=== PATIENT | male | born 1960 | race Caucasian/White ===

== ENCOUNTER 2022-04-12 08:08 | Inpatient (IN) ==
--- NOTE | 2022-03-29 16:00 | PAT Medication Instructions ---
Medication Instructions Date of Service March 29, 2022 Home Medications amlodipine 5 mg tablet 10 mg PO QAM aspirin 81 mg tablet,delayed release 81 mg PO QAM atorvastatin 20 mg tablet 20 mg PO QAM clopidogrel 75 mg tablet 75 mg PO QAM losartan 50 mg tablet 50 mg PO QAM ASK your prescriber and surgeon aspirin 81 mg tablet,delayed release 81 mg PO QAM clopidogrel 75 mg tablet 75 mg PO QAM DO NOT take the morning of surgery losartan 50 mg tablet 50 mg PO QAM Take morning of surgery With a small sip of water, OTHERWISE NOTHING TO EAT OR DRINK AFTER MIDNIGHT: amlodipine 5 mg tablet 10 mg PO QAM atorvastatin 20 mg tablet 20 mg PO QAM Other Notes If you have any questions please call us at [phone] or [phone] or [phone] or [phone]
--- NOTE | 2022-04-04 08:51 | Anesthesiology Consultation ---
Date of Service April 04, 2022 Assessment & Plan (1) Encounter for pre-operative examination: - awaiting copy of 03/16/[address] - awaiting cardiology pre-op evaluation 04/06/22. - New occasional dyspnea with exertion and non-associated chest discomfort. Pt denies any symptoms today in clinic, normal cardiopulmonary exam. He was advised to call his PCP to update on new symptoms and to call 911 if recurrence of either symptoms or new symptoms. He verbalized understanding and agreement, denied questions or concerns. Barbara with PCP office made aware. Workload note sent to cardiology provider for upcoming 04/06/22 appointment. Thalia with surgeon's office made aware. Chart Review Chart Review: Pending: Refer to Additional Notes / Consult section and Patient seen in Pre Admission Testing Teaching & Discussion Pre-Anesthesia Teaching/Discussion Notes: Instructed NPO after midnight before surgery, except medications with 15 cc of water. Medication instructions provided according to the PAT guidelines. History Surgery Operation Date: 04/12/22 10:20 Proposed Procedures p Right Common Femoral Endarterectomy - Omega Valle MD Height/Weight Height: 5 ft 7 in Weight: 98.6 kg Allergies Allergy/AdvReac Type Severity Reaction Status Date / Time No Known Allergies Allergy Verified 03/29/22 13:30 Medications Home Medications Medication Instructions Recorded Confirmed Last Taken amlodipine 5 mg tablet 10 mg PO QAM 01/02/22 03/29/22 03/22/22 07:30 aspirin 81 mg tablet,delayed 81 mg PO QAM 01/02/22 03/29/22 03/22/22 07:30 release atorvastatin 20 mg tablet 20 mg PO QAM 01/02/22 03/29/22 03/22/22 07:30 clopidogrel 75 mg tablet 75 mg PO QAM 01/02/22 03/29/22 03/22/22 07:30 Past Medical History Medical History (Updated 04/04/22 @ 08:46 by Genoveva Crain PA-C) History of arteriography Hypertension controlled, stable per pt Peripheral arterial disease Sleep apnea cpap-compliant Patient denies h/o stroke, seizures, heart attack, heart failure, DM, blood clots or blood transfusions. Exercise / Class Metabolic Activity II 4-5 Yardwork/Stairs/Walk up hill (occasional mild SOB with 1 FOS 1 week ago, denies chest discomfort with stairs but states infrequently has slight chest discomfort at rest-denies with activity; denies symptoms today) Past Surgical History Surgical History History of esophagogastroduodenoscopy (EGD) History of tonsillectomy and adenoidectomy Past Anesthesia History No Hx of Anesthesia Complications and No Family Hx of Anesthesia Complications History of PONV No Hx of PONV and No Hx of Motion Sickness Social History Smoking Status: Current every day smoker (advised) tobacco type: cigarettes Smoking cigarettes per day: 10 Do You Dip or Chew Tobacco: No Hx Alcohol Use: Yes alcohol intake frequency: holidays/special occasions only Hx Substance Use: No substance use type: does not use Review of Systems Patient denies reflux, fever, chills, cough, wheezing, or palpitations. Physical Exam Vital Signs Vitals BP 147/89 P 69 TEMP 98 SP02 96% on RA RESP 17 Physical Pt resting comfortably in clinic, alert and oriented, responding appropriately throughout, non-diaphoretic Full cervical extension range of motion without pain TMD 3.5 finger breadths Mallampati Score 2 Dentition: intact, several chipped teeth, several caps/crowns; denies loose teeth, implants or bridges Lungs: normal respiratory effort. Clear throughout to auscultation, no adventitious breath sounds Cardiac: regular rate and rhythm, no murmurs noted Carotid arteries: negative bruit bilat Lab Results Anesthesia Preop Results Results Anesthesia Widget: WBC 11.39 K/ul (4.8-10.8) H 04/04/22 Hgb 16.9 g/dl (14.0-18.0) 04/04/22 Hct 45.9 % (40.1-51.0) 04/04/22 Plt 219 K/uL (130-400) 04/04/22 Na 143 mmol/L (136-145) 04/04/22 K 4.1 mmol/L (3.5-5.1) 04/04/22 Cl 108 mmol/L (98-107) H 04/04/22 CO2 29 mmol/L (21-32) 04/04/22 BUN 8 mg/dl (6-23) 04/04/22 Creat 0.77 mg/dl (0.6-1.4) 04/04/22 Glucose Level 97 mg/dl (70-99(Fasting)) 04/04/22 PT 10.9 Seconds (9.0-12.0) 04/04/22 PTT 29.6 Seconds (21.0-31.0) 04/04/22 INR 1.0 (0.9-1.1) 04/04/22 Blood Type O Positive 04/04/22 Antibody Screen NEGATIVE 04/04/22 Testing Laboratory Results Surgeon's office made aware of slightly elevated WBC with left shift. Electrocardiogram Date: 04/04/22 Sinus bradycardia with 1st degree AV block, rate 59 bpm Chest X-Ray Date: 01/02/22 *1view* No acute chest disease
--- NOTE | 2022-04-11 15:23 | History & Physical Report ---
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 He is admitted for arteriography and intervention of his iliac arteries. I have discussed the risks options and benefits of the procedure with the patient. The patient understands the risks options and benefits and agrees to the procedure. History of Present Illness Chief Complaint: Lower extremity claudication Primary Care Provider: Ramirez Toro PA-C Mr De Dios is a very pleasant 61-year-old gentleman with history of hypertension, hyperlipidemia and peripheral arterial disease. He had a prior right common iliac artery stenting over 10 years ago in [place]. He then underwent left common iliac artery stenting and balloon angioplasty of the right LLOYD stent in [address] Paul in [facility]. This was performed for lower extremity claudication. Per reports, he had two10 x 39 balloon expandable stents placed in the left common iliac artery. This was postdilated to 12 mm. There was no record of the size of the right iliac stent. He was maintained on aspirin and Plavix. He states he never had follow-up or imaging for both stents. He moved to [place] years ago and he currently works at this [employer]. He states that he was tased during training in October at his back and since then noticed right hip claudication that typically happens after walking for 20 to 30 feet and relieved by rest. He then also started to notice pain in the left lower extremity involving the calf, thigh and hip. The left side pain happens all the time and wakes him up from sleep. He is very frustrated about this disabling pain but he continues to work despite that. He denies numbness or weakness. He denies wounds or ulcers. He continues to smoke half a pack a day. Allergies Allergy/AdvReac Type Severity Reaction Status Date / Time No Known Allergies Allergy Verified 01/02/22 01:34 Home Medications Medication Instructions Recorded Confirmed Type amlodipine 5 mg tablet 5 mg PO QAM 01/02/22 01/02/22 History aspirin 81 mg tablet,delayed 81 mg PO QAM 01/02/22 01/02/22 Hi story release atorvastatin 20 mg tablet 20 mg PO QAM 01/02/22 01/02/22 Histo ry clopidogrel 75 mg tablet 75 mg PO QAM 01/02/22 01/02/22 Histor y Past Med/Surg History Medical History Peripheral arterial disease Social History Smoking Status: Current every day smoker Tobacco Type: Cigarettes Preferred Language: Chinese Feels Safe at Home: Yes Review of Systems All systems reviewed & are unremarkable except as noted in HPI & below Physical Exam Physical Exam:M PHYSICAL EXAM: VITALS: 140/80, heart rate 76, satting 96% on room air. GENERAL: Sitting comfortably no acute distress CARDS: Regular PULM: nonlabored breathing on room air ABDOMEN: Soft, nondistended EXTREMITIES: Warm, well-perfused. No skin tears or wounds. Palpable DP and biphasic PT signals bilaterally NEURO: Grossly intact Signed By: <Electronically signed by Omega Valle MD> 03/23/22828 Created:03/23/22825 The status of this report isSigned. Draft = Not yet reviewed or approved by Medical Physician. Signed = Reviewed and approved by Medical Physician. Allergies Allergy/AdvReac Type Severity Reaction Status Date / Time No Known Allergies Allergy Verified 04/06/22 08:27 Home Medications Medication Instructions Recorded Confirmed Type amlodipine 5 mg tablet 10 mg PO QAM 01/02/22 04/06/22 History aspirin 81 mg tablet,delayed 81 mg PO QAM 01/02/22 04/06/22 History release atorvastatin 20 mg tablet 20 mg PO QAM 01/02/22 04/06/22 History clopidogrel 75 mg tablet 75 mg PO QAM 01/02/22 04/06/22 History Past Med/Surg History Medical History (Updated 04/04/22 @ 08:46 by Genoveva Crain PA-C) History of arteriography Hypertension controlled, stable per pt Peripheral arterial disease Sleep apnea cpap-compliant Surgical History History of esophagogastroduodenoscopy (EGD) History of tonsillectomy and adenoidectomy Social History Smoking Status: Current every day smoker (advised) Tobacco Type: Cigarettes Cigarettes Per Day: 10; Second Hand Exposure: No; Hx Alcohol Use: Yes Hx Substance Use: No Preferred Language: Chinese Communication Ability: Effective Brick Off Bearer Required: No Beliefs That Will Affect Care: None Current Living Situation: Family Feels Safe at Home: Yes Assistive Devices: CPAP and Glasses
[~2022-04-12 08:08] MED LIST: CEFAZOLIN 2,000 MG/15 ML SYR IV SCH; SODIUM CHLORIDE 0.9% 1000ML 1,000 ML IV SCH
--- NOTE | 2022-04-12 09:58 | History & Physical Bridge Note ---
Date of Service April 12, 2022 History & Physical Bridge Note I have examined the patient, reviewed the History & Physical and in the interval since the performance of the History & Physical I have noted the following changes of clinical significance: no changes noted
[2022-04-12] MEDS ORDERED: GELATIN SPONGE SZ 100 ONE (10:03)
[2022-04-12] MEDS ORDERED: BUPIVACAINE 0.5 % 5 MG/1 ML MPF 30ML VIAL ONE (10:03)
[2022-04-12] MEDS ORDERED: HEPARIN (PORCINE) 1000 UNIT/ML 10 ML (CATH LAB USE ONLY) ONE (10:03)
[2022-04-12] MEDS ORDERED: EPINEPHrine INJ 1 MG/ML AMP ONE ×2 (10:03→10:05)
[2022-04-12] MEDS ORDERED: ceFAZolin 330 MG/ML 1 GM VIAL ONE (10:03)
[2022-04-12] MEDS ORDERED: LIDOCAINE 1% LOCAL 20 ML VIAL ONE (10:03)
[2022-04-12] MEDS ORDERED: PAPAVERINE HCL INJ 30 MG/ML 2 ML VIAL ONE (10:03)
[2022-04-12] MEDS ORDERED: THROMBIN FOR SOLN 20000 UNIT KIT ONE (10:04)
[2022-04-12] MEDS ORDERED: PROPOFOL IV EMULSION 10 MG/ML 20 ML VIAL IV ONE (10:10)
[2022-04-12] MEDS ORDERED: ATROPINE SULFATE 0.1 MG/ML 10ML SYR IV PRN (10:10)
[2022-04-12] MEDS ORDERED: HYDROmorphone INJ 2 MG/ML SYR/VIAL IV PRN (10:10)
[2022-04-12] MEDS ORDERED: ONDANSETRON INJ 2 MG/ML 2 ML VIAL IV PRN (10:10)
[2022-04-12] MEDS ORDERED: fentaNYL citrate 100 MCG/2 ML VIAL IV PRN (10:10)
[2022-04-12] MEDS ORDERED: DEXAMETHASONE SOD INJ 4 MG/ML VIAL ONE (10:10)
[2022-04-12] MEDS ORDERED: ONDANSETRON INJ 2 MG/ML 2 ML VIAL ONE (10:10)
[2022-04-12] MEDS ORDERED: ePHEDrine sulfate 50 MG/ML AMP IV PRN (10:10)
[2022-04-12] MEDS ORDERED: PROMETHAZINE HCL 12.5 MG in SODIUM CHLORIDE 0.9% 50 ML IV PRN (10:10)
[2022-04-12] MEDS ORDERED: fentaNYL citrate 100 MCG/2 ML VIAL ONE ×4 (10:11→13:23)
[2022-04-12] MEDS ORDERED: MIDAZOLAM HCL 1 MG/ML 2ML VIAL ONE (10:11)
[2022-04-12 10:29] LABS: Calcium 8.9 mg/dl (8.5-10.1); Creatinine Clr Calc Pharmacy 142.3 ml/min; Est GFR (African American) 125.8 ml/min; Est GFR (Non-African American) 108.5 ml/min; Potassium 3.7 mmol/L (3.5-5.1)
[2022-04-12] MEDS ORDERED: HEPARIN SOD (PORCINE) 1000 UNIT/ML ONE (12:05)
--- NOTE | 2022-04-12 13:26 | Post Operative Brief Note ---
Immediate Post Op Note v1 Date of Surgery April 12, 2022 Pre & Post Diagnosis Operation Date: 04/12/22 10:20 Pre-Op Diagnosis: Right Common Femoral Artery Occlusion Post-Op Diagnosis: Right Common Femoral Artery Occlusion I identified the patient and participated in the time-out.: Yes Procedure Operation Date: 04/12/22 10:20 Actual Procedures p Right Common Femoral Endarterectomy with bovine patch and bovine interposition graft of proximal superficial femoral artery - Omega Valle MD Surgeon Omega Valle MD Fisher Sponge Hooking Genoveva,PAC Estimated Blood Loss 200 Findings Consistent with Post-Op Diagnosis Anesthesia Type General Complications none Disposition Accompanied Patient To Recovery: No Disposition: Recovery Room
--- NOTE | 2022-04-12 13:59 | Anesthesiology Progress Note ---
Date of Service April 12, 2022 Anesthesia Post Procedure Vital Signs Vital Signs: Temp Pulse Pulse Resp BP Pulse Ox O2 Del Method 04/12/22 13:55 70 15 144/81 H 95 Oxymask 04/12/22 13:45 73 15 159/76 H 95 Oxymask 04/12/22 13:35 73 15 145/74 H 95 Oxymask 04/12/22 13:26 37.3 C 74 12 147/95 H 95 Oxymask 04/12/22 08:41 36.9 C 67 20 120/83 93 Room Air O2 Flow Rate 04/12/22 13:55 5 04/12/22 13:45 5 04/12/22 13:35 10 04/12/22 13:26 10 04/12/22 08:41 Transfer of Care Handoff Completed per policy Notes Mental Status: alert / awake / arousable and participated in evaluation Patient Amnestic to Procedure: Yes Nausea / Vomiting: adequately controlled Pain: adequately controlled Airway Patency, RR, SpO2: stable & adequate BP & HR: stable & adequate Hydration State: stable & adequate Anesthetic Complications: no major complications apparent
[2022-04-12] MEDS: oxyCODONE/ACETAMINOPHEN 5mg/325mg TAB PO PRN (15:11)
[2022-04-12 15:13] LABS: Basophils # (auto) 0.06 K/uL (0-0.2); Basophils % (auto) 0.5 %; Eosinophils # (auto) 0.18 K/uL (0-0.50); Eosinophils % (auto) 1.6 %; Hematocrit (blood only) 39.7 % (40.1-51.0); Hemoglobin 14.7 g/dl (14.0-18.0); Immature Granulocytes # (auto) 0.07 K/uL (0.00-0.02); Immature Granulocytes % (auto) 0.6 %; Mean Corpuscular Hemoglobin 34.5 pg (25.0-34.0); Mean Corpuscular Volume 93.2 fL (80.0-100.0); Mean Platelet Volume 8.7 fL (9.4-12.4); Monocytes # (auto) 0.65 K/uL (0.24-0.82); Monocytes % (auto) 5.9 %; Neutrophils # (auto) 7.69 K/uL (1.4-6.5); Neutrophils % (auto) 70.4 %; Platelet Count 182 K/uL (130-400); RDW Coefficient of Variation 12.3 % (11.5-14.5); RDW Standard Deviation 42.3 fL (36.4-46.3); Red Blood Count 4.26 M/uL (4.63-6.08); White Blood Count 10.95 K/ul (4.8-10.8)
[2022-04-12] MEDS: D5W AND 1/2NSS 1,000 ML IV SCH ×2 (15:20→23:24)
[2022-04-12] MEDS: ceFAZolin 2000MG 2,000 MG/15 ML SYR IV SCH (17:25)
[2022-04-12] MEDS: MoRPHine SULFATE 4 MG/ML 1 ML CARP\\VIAL IV PRN (22:47)
[2022-04-13] MEDS: ceFAZolin 2000MG 2,000 MG/15 ML SYR IV SCH (02:01)
[2022-04-13] MEDS: MoRPHine SULFATE 4 MG/ML 1 ML CARP\\VIAL IV PRN ×2 (02:04→06:42)
[2022-04-13 06:27] LABS: Basophils # (auto) 0.07 K/uL (0-0.2); Basophils % (auto) 0.6 %; Eosinophils # (auto) 0.32 K/uL (0-0.50); Eosinophils % (auto) 2.7 %; Hematocrit (blood only) 37.4 % (40.1-51.0); Hemoglobin 13.5 g/dl (14.0-18.0); Immature Granulocytes # (auto) 0.06 K/uL (0.00-0.02); Immature Granulocytes % (auto) 0.5 %; Lymphocytes # (auto) 3.37 K/uL (1.2-3.4); Lymphocytes % (auto) 28.2 %; Mean Corpuscular Hemoglobin 33.6 pg (25.0-34.0); Mean Corpuscular Hgb Conc 36.1 g/dL (32.0-36.0); Mean Platelet Volume 8.9 fL (9.4-12.4); Monocytes # (auto) 0.89 K/uL (0.24-0.82); Monocytes % (auto) 7.5 %; Neutrophils # (auto) 7.22 K/uL (1.4-6.5); Neutrophils % (auto) 60.5 %; Platelet Count 172 K/uL (130-400); RDW Coefficient of Variation 12.4 % (11.5-14.5); RDW Standard Deviation 42.2 fL (36.4-46.3); Red Blood Count 4.02 M/uL (4.63-6.08); White Blood Count 11.93 K/ul (4.8-10.8)
[2022-04-13 06:53] LABS: BUN Creatinine Ratio 11.9 (10-20); Calcium 8.1 mg/dl (8.5-10.1); Creatinine Clr Calc Pharmacy 101.8 ml/min; Est GFR (African American) 109.5 ml/min; Est GFR (Non-African American) 94.5 ml/min; Potassium 3.8 mmol/L (3.5-5.1)
[2022-04-13] MEDS: ASPIRIN 81 MG ECTAB PO SCH (08:14)
[2022-04-13] MEDS: amLODIPine BESYLATE 5 MG TAB PO SCH (08:14)
[2022-04-13] MEDS: ENOXAPARIN INJ 40 MG/0.4 ML SYR SQ SCH (08:14)
[2022-04-13] MEDS: ATORVASTATIN 20 MG TAB PO SCH (08:14)
[2022-04-13] MEDS: CLOPIDOGREL BISULFATE 75 MG TAB PO SCH (08:15)
--- NOTE | 2022-04-13 09:24 | Surgery Progress Note ---
Date of Service April 13, 2022 Assessment & Plan (1) Occlusion of common femoral artery: Plan: Pt now POD #1 after RLE common femoral endarterectomy with bovine interposition graft. Still having pain in R groin. Will increase activity today. Possible d/c tomorrow. Admission and Anticipated Discharge Date Admission Date: April 12, 2022 Subjective 61 yo m POD #1 after RLE common femoral endarterectomy with bovine interposition graft, seen in f/u today. Pt state he feels tired and his R groin is sore. Denies SHARIF, chest pain, SOB, abd pain, N/V, dizziness, R fooe pain, other complaints. Review of Systems Review of Systems: All systems reviewed & are unremarkable except as noted in HPI & below Physical Exam Constitutional: WD/WN, vitals as above not in distress Respiratory: normal respiratory effort Auscultation: lungs clear to auscultation bilaterally and + diminished lung sounds Cardiovascular: Rate/Rhythm: regular rate and regular rhythm Vessels: femoral pulses present, posterior tibial pulses present, dorsalis pedis pulses present and radial pulses present; + abnormal peripheral pulses Extremities: normal capillary refill; no edema Gastrointestinal (Abdomen): Inspection/Auscultation: abdomen normal to inspection and normal bowel sounds Percussion/Palpation: abdomen soft; abdomen nontender Musculoskeletal: no cyanosis or clubbing, extremities motor strength 5/5 Skin: no rashes, warm and dry + incision (R groin incisional wound vac in place, working well. ) Neurologic: moves all extremities and awake; no focal motor deficits and not confused Psychiatric: A+Ox3, euthymic affect Results & Data ([facility]) Vital Signs (Past 12 Hours) Vital Signs Temp Pulse Pulse Resp BP Pulse Ox O2 Del Method 04/13/22 07:41 36.7 C 63 16 123/80 93 Room Air 04/13/22 03:32 92 Nasal Cannula 04/13/22 03:15 37 C 69 18 113/69 88 L Room Air 04/12/22 22:45 36.5 C 57 L 18 113/72 93 Room Air O2 Flow Rate 04/13/22 07:41 04/13/22 03:32 2 04/13/22 03:15 04/12/22 22:45
[2022-04-14 07:44] LABS: Hematocrit (blood only) 36.3 % (40.1-51.0); Hemoglobin 13.4 g/dl (14.0-18.0)
[2022-04-14] MEDS: ATORVASTATIN 20 MG TAB PO SCH (08:33)
[2022-04-14] MEDS: ASPIRIN 81 MG ECTAB PO SCH (08:33)
[2022-04-14] MEDS: amLODIPine BESYLATE 5 MG TAB PO SCH (08:33)
[2022-04-14] MEDS: ENOXAPARIN INJ 40 MG/0.4 ML SYR SQ SCH (08:33)
[2022-04-14] MEDS: CLOPIDOGREL BISULFATE 75 MG TAB PO SCH (08:33)
--- NOTE | 2022-04-14 15:04 | Surgery Progress Note ---
Date of Service April 14, 2022 Assessment & Plan (1) Occlusion of common femoral artery: Plan: Pt now POD #2 after RLE common femoral endarterectomy with bovine interposition graft. Doing much better today. Ambulating without assistance. D/C today Admission and Anticipated Discharge Date Admission Date: April 12, 2022 Subjective 61 yo m POD #2 after RLE common femoral endarterectomy with bovine interposition graft, seen in f/u today. He has no complaints today. He has no pain in the right groin but he does complain of some tingling in his thigh. He has no pain in his right foot. He was ambulating in the perez and claims of both legs feel better. Physical Exam Constitutional: WD/WN, vitals as above Respiratory: normal respiratory effort; no respiratory distress Cardiovascular: Rate/Rhythm: regular rate and regular rhythm Vessels: femoral pulses present, posterior tibial pulses present and dorsalis pedis pulses present Extremities: normal capillary refill Skin: + incision (prevena in place) Results & Data ([facility]) Vital Signs (Past 12 Hours) Vital Signs Temp Pulse Resp BP Pulse Ox O2 Del Method 04/14/22 08:48 Room Air 04/14/22 07:40 37.2 C 73 16 130/83 93 Room Air
[2022-04-14] MEDS: oxyCODONE/ACETAMINOPHEN 5mg/325mg TAB PO PRN (16:34)
--- NOTE | 2022-04-18 14:00 | Discharge Summary ---
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 He is admitted for arteriography and intervention of his iliac arteries. I have discussed the risks options and benefits of the procedure with the patient. The patient understands the risks options and benefits and agrees to the procedure. History of Present Illness Chief Complaint: Lower extremity claudication Primary Care Provider: Ramirez Toro PA-C Mr De Dios is a very pleasant 61-year-old gentleman with history of hypertension, hyperlipidemia and peripheral arterial disease. He had a prior right common iliac artery stenting over 10 years ago in [place]. He then underwent left common iliac artery stenting and balloon angioplasty of the right LLOYD stent in [address] Paul in [facility]. This was performed for lower extremity claudication. Per reports, he had two10 x 39 balloon expandable stents placed in the left common iliac artery. This was postdilated to 12 mm. There was no record of the size of the right iliac stent. He was maintained on aspirin and Plavix. He states he never had follow-up or imaging for both stents. He moved to [place] years ago and he currently works at [employer]. He states that he was tased during training in October at his back and since then noticed right hip claudication that typically happens after walking for 20 to 30 feet and relieved by rest. He then also started to notice pain in the left lower extremity involving the calf, thigh and hip. The left side pain happens all the time and wakes him up from sleep. He is very frustrated about this disabling pain but he continues to work despite that. He denies numbness or weakness. He denies wounds or ulcers. He continues to smoke half a pack a day. Allergies Allergy/AdvReac Type Severity Reaction Status Date / Time No Known Allergies Allergy Verified 01/02/22 01:34 Home Medications Medication Instructions Recorded Confirmed Type amlodipine 5 mg tablet 5 mg PO QAM 01/02/22 01/02/22 History aspirin 81 mg tablet,delayed 81 mg PO QAM 01/02/22 01/02/22 Hi story release atorvastatin 20 mg tablet 20 mg PO QAM 01/02/22 01/02/22 Histo ry clopidogrel 75 mg tablet 75 mg PO QAM 01/02/22 01/02/22 Histor y Past Med/Surg History Medical History Peripheral arterial disease Social History Smoking Status: Current every day smoker Tobacco Type: Cigarettes Preferred Language: Georgian Feels Safe at Home: Yes Review of Systems All systems reviewed & are unremarkable except as noted in HPI & below Physical Exam Physical Exam: PHYSICAL EXAM: VITALS: 140/80, heart rate 76, satting 96% on room air. GENERAL: Sitting comfortably no acute distress CARDS: Regular PULM: nonlabored breathing on room air ABDOMEN: Soft, nondistended EXTREMITIES: Warm, well-perfused. No skin tears or wounds. Palpable DP and biphasic PT signals bilaterally NEURO: Grossly intact Signed By: <Electronically signed by Omega Valle MD> 03/23/22828 Created:03/23/22825 The status of this report isSigned. Draft = Not yet reviewed or approved by Medical Physician. Signed = Reviewed and approved by Medical Physician. Admission Exam Per Admitting Provider PHYSICAL EXAM: VITALS: 140/80, heart rate 76, satting 96% on room air. GENERAL: Sitting comfortably no acute distress CARDS: Regular PULM: nonlabored breathing on room air ABDOMEN: Soft, nondistended EXTREMITIES: Warm, well-perfused. No skin tears or wounds. Palpable DP and biphasic PT signals bilaterally NEURO: Grossly intact Principal Diagnosis 1. s/p R Common femoral Endarterectomy with bovine patch 2. Right common femoral artery occlusion Discharge Exam Constitutional WD/WN, vitals as above not in distress Respiratory normal respiratory effort Auscultation: lungs clear to auscultation bilaterally and + diminished lung sounds Cardiovascular Rate/Rhythm: regular rate and regular rhythm Vessels: femoral pulses present, posterior tibial pulses present, dorsalis pedis pulses present and radial pulses present; + abnormal peripheral pulses Extremities: normal capillary refill; no edema Gastrointestinal (Abdomen) Inspection/Auscultation: abdomen normal to inspection and normal bowel sounds Percussion/Palpation: abdomen soft; abdomen nontender Musculoskeletal no cyanosis or clubbing, extremities motor strength 5/5 Skin no rashes, warm and dry + incision (R groin incisional wound vac in place, working well. ) Neurologic moves all extremities and awake; no focal motor deficits and not confused Psychiatric A+Ox3, euthymic affect Discharge Data Allergies Allergy/AdvReac Type Severity Reaction Status Date / Time No Known Allergies Allergy Verified 04/12/22 08:38 Procedures Performed Operation Date: 04/12/22 10:20 Actual Procedures p Right Common Femoral Endarterectomy - Omega Valle MD Hospital Course (1) Occlusion of common femoral artery: Pt now POD #2 after RLE common femoral endarterectomy with bovine interposition graft. Doing much better today. Ambulating without assistance. D/C today Total Time Total Time Spent Total Time Spent (In Minutes): 0 Discharge Plan Discharge Items Patient Disposition: Home - Self-Care Reason For Visit: Right Common Femoral Artery Occlusion Discharge Diagnosis: Right common femoral artery stenoses, right common femoral artery endarterectomy with bovine graft Activity: Per Instructions section Non-emergency contact: Surgeon Call non-emergency contact if: your temperature is above 101.5, your wound has increased redness, your wound has increased drainage and your wound pain has increased Follow-up/Referrals: Ramirez Toro PA-C [Primary Care Provider] - Diet: Heart Healthy Addtl Attending Provider Instructions: ACTIVITY RECOMMENDATIONS: May shower starting tomorrow if the Prevena dressing can be covered and remain dry. May remove Prevena graft this coming Monday or sooner if it loses the suction SPECIAL CARE INSTRUCTIONS: Call your doctor if: * Temperature above 101 degrees * Pain not relieved by pain medicine ordered * There is increased drainage or redness from any incision * You have any unanswered questions or concerns. Pending Studies at Discharge: No Stand-Alone Forms: [facility] [employer], Smoking Cessation Medications and DC Order Prescriptions: New oxycodone-acetaminophen [Percocet] 5-325 mg tablet 1 tab PO Q6H PRN (Reason: pain) Qty: 20 0RF Continued atorvastatin 20 mg tablet 20 mg PO QAM clopidogrel 75 mg tablet 75 mg PO QAM amlodipine 5 mg tablet 10 mg PO QAM aspirin 81 mg Tablet,Delayed Release (Dr/Ec) 81 mg PO QAM Discharge Orders: Discharge Order (Routine); Ordered 04/14/22 Ordered By: Omega Valle Admission Data Admit Date/Time: 04/12/22 13:18 Attending Provider: Omega Valle Admit Provider: Omega Valle Primary Care Provider: Ramirez Toro Other Interventions: Discharge Summary Assessment (RN) Last Done: 04/14/22 15:56
--- NOTE | 2022-04-25 12:45 | Operative Report ---
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 Post-Op Diagnosis: Right Common Femoral Artery Occlusion I identified the patient and participated in the time-out.: Yes Procedure Operation Date: 04/12/22 10:20 Actual Procedures p Right Common Femoral Endarterectomy with bovine patch and bovine interposition graft of superficial femoral artery proximally- Omega Valle MD Surgeon Omega Valle MD [employer] Genoveva,PAC Estimated Blood Loss 200 Findings Consistent with Post-Op Diagnosis Specimens none Anesthesia Type General Complications none Disposition Accompanied Patient To Recovery: No Disposition: Recovery Room Indications this is a 61yo male with severe claudication of the right lower extremity. He w as found to have several areas of significant narrowing of the right common femoral artery and a significant narrowing of the proximal SFA with a mobile mass of calcium seen on angiography. Endarterectomy was recommended. I have discussed the risks options and benefits of the procedure with the patient. The patient understands the risks options and benefits and agrees to the procedure. Description of Procedure the patient was taken to the operating room and placed in the supine position. Both groins were prepped and draped in the usual fashion. A timeout was performed and the patient was identified. A longitudinal incision was made in the right groin. This was carried down through the femoral sheath. The common femoral artery was isolated and dissected free from the inguinal ligament down to and including the first 10cm of the sfa. The patient was then heparinized. After adequate heparinization was accomplished the common femoral , profunda femoral and sfa were clamped. A longitudinal arteriotomy was performed. This reveled significant narrowing of the common femoral and proximal sfa. Endarterectomy was then started. There was a significant amount of inflamed arterial wall. Once the endarterectomy was completed, there was a good proximal breakoff point but the proximal sfa was somewhat thin. A bovine patch was sown in place with a 5-0 prolene suture. Once it was in place and the arteries unclamped, the proximal sfa tore at the thinned out area. The arteries were reclamped. the suture of the patch was then undone back to the origin of the sfa. Using the rest of the bovine graft, a tube graft was formed as the proximal sfa leaving the anterior surface free. This was sown in place with 5-0 prolene suture. The patch was then sown to the open area of the tube graft anteriorly again with 5-0 prolene suture tieing it to the previous place suture of the patch. Clamps were then removed. Good flow was seen through the common and superficial femoral arteries. Adequate hemostasis was noted of the patch and the wound. the wound was then closed using a running 2-0 vicryl for the femoral sheath, 3-0 for the subcutaneous layer, and birgit for the skin. A prevena dressing was applied. I have discussed the risks options and benefits of the procedure with the patient. The patient understands the risks options and benefits and agrees to the procedure. Ashlee Dennis Pac assisted due to lack of resident availability and was necessary for positioning, draping, retraction, wound closure deep layers, subcutaneous tissue, and skin closure and was necessary for assisting with the case. I attest to the content of the Intraoperative Record and any orders documented therein. Any exceptions are noted below.
== END 2022-04-14 16:56 | disposition home or self-care (01) | DRG 254 ==
LOC: ASU 08:08 → 3W 13:18